=== PATIENT | male | born 1990 | race Caucasian/White ===

== ENCOUNTER 2018-02-15 01:14 | Inpatient (IN) | payer OTHER ==
[~2018-02-15] VITALS: Ht 185.4 cm; Wt 85.9 kg
--- NOTE | 2018-02-15 01:19 | ED GI/GU/ABDOMINAL COMPLAINT ---
See Addendum History of Present Illness General Chief Complaint: Abdominal Pain/Flank Pain Stated Complaint: UPPER ABD PAIN X3 DAYS Source: patient Exam Limitations: no limitations Vital Signs & Intake/Output Vital Signs & Intake/Output Vital Signs Date Time Temp Pulse Resp B/P B/P Pulse O2 O2 Flow FiO2 Mean Ox Delivery Rate 02/15 0128 99.3 72 18 136/69 97 Room Air Allergies Coded Allergies: Penicillins (ANAPHYLAXIS 02/15/18) Triage Nurses Notes Reviewed? yes Onset: Gradual Duration: day(s): Timing: recent history Quality/Severity: cramping, sharpness Location: epigastric Radiation: no radiation Activities at Onset: none Modifying Factors: Improves With: rest. Associated Symptoms: headache, nausea/vomiting HPI: 28 yo gentleman presents with 3-4 days of mid epigastric abdominal discomfort associated with diffuse headache. He notes nausea, burning, crampy mid epigastric discomfort, without fever, chills, neck stiffness, vision changes. "I feel like I'm in a fog.... and I usually don't have headaches." He is otherwise well. Past History Travel History Traveled to [place] past 21 day No Medical History Any Pertinent Medical History? see below for history Surgical History Surgical History: none Family History Hx Contributory? No Review of Systems Review of Systems Constitutional: Reports: no symptoms. EENTM: Reports: no symptoms. Respiratory: Reports: no symptoms. Cardiovascular: Reports: no symptoms. GI: Reports: no symptoms. Genitourinary: Reports: no symptoms. Musculoskeletal: Reports: no symptoms. Skin: Reports: no symptoms. Neurological/Psychological: Reports: no symptoms. Hematologic/Endocrine: Reports: no symptoms. Immunologic/Allergic: Reports: no symptoms. All Other Systems: Reviewed and Negative Physical Exam Physical Exam General Appearance: well developed/nourished, mild distress Head: atraumatic, normal appearance Eyes: Bilateral: normal appearance. Ears, Nose, Throat, Mouth: hearing grossly normal, moist mucous membrane Neck: normal inspection, supple, full range of motion Respiratory: normal breath sounds, chest non-tender, no respiratory distress, quiet respiration, lungs clear Cardiovascular: regular rate/rhythm Gastrointestinal: normal bowel sounds, soft, mild mid epigastric tenderness to palpation. no rebound. no guarding. no rlq tenderness, no ruq tenderness. Back: normal inspection, normal range of motion Extremities: normal range of motion Neurologic/Psych: no motor/sensory deficits, awake, alert, oriented x 3 Skin: intact, normal color, warm/dry Core Measures ACS in differential dx? No Sepsis Present: No Sepsis Focused Exam Completed? No Progress Differential Diagnosis: gastritis, gerd vs other.... pt also likely with tension headache vs migraine Plan of Care: Orders Procedure Date/time Status LIPASE 02/15 117 Complete HEPATIC FUNCTION PANEL 02/15 117 Complete CBC WITHOUT DIFFERENTIAL 02/15 117 Complete BASIC METABOLIC PANEL 02/15 117 Complete AMYLASE 02/15 117 Complete Current Medications Sig/Maggie Start time Last Medication Dose Stop Time Status Admin Metronidazole 500 MG ONCE ONE 02/15 430 AC 02/15 (Flagyl) 02/15 529 042 N/A 1 UNIT (No Carrier) Morphine Sulfate 4 MG ONCE ONE 02/15 430 UNVr 02/15 (Morphine) 02/15 431 0422 Ciprofloxacin 400 MG ONCE ONE 02/157 AC (Cipro) 02/15 0516 Dextrose/Water 200 ML (D5W) Laboratory Tests 02/15/18 0132: Anion Gap 11, Estimated GFR > 60, BUN/Creatinine Ratio 21.7, Glucose 97, Calcium 9.1, Total Bilirubin 2.2 H, Direct Bilirubin 1.5 H, AST 3483 H, ALT 5400 H, Alkaline Phosphatase 232 H, Total Protein 6.4, Albumin 3.9, Amylase 47, Lipase 218, CBC w Diff MAN DIFF ORDERED, RBC 4.85, MCV 91.0, MCH 31.0, MCHC 34.0, RDW 14.2, MPV 10.0, Segmented Neutrophils 51, Band Neutrophils 2, Lymphocytes 41, Monocytes 6, Platelet Estimate ADEQUATE, Polychromasia 1+, Ovalocytes FEW, Fld Total RBCs Counted 100 Diagnostic Imaging: Viewed by Me: Radiology Read. Discussed w/RAD: Radiology Read. Radiology Impression: PATIENT: RENE PIERRE PRESENT AGE: 28 PATIENT ACCOUNT NO: [id number] : 89 LOCATION: [facility] ORDERING PHYSICIAN: Brien Yuan MD SERVICE DATE: 02/15/18 EXAM TYPE: CAT - CT HEAD WO IV CONTRAST EXAMINATION: CT HEAD WITHOUT CONTRAST CLINICAL INFORMATION: Headache. COMPARISON: None TECHNIQUE: Contiguous axial imaging was performed from the skull base to vertex without intravenous administration of contrast. DLP: 727.04 mGy-cm FINDINGS: There is no evidence of acute intracranial hemorrhage or territorial infarction. No abnormal mass effect or midline shift is seen. Cordero to white matter differentiation is well preserved. No extra-axial fluid collections are identified. The ventricles are normal in size. There is no abnormal attenuation within the brain parenchyma. The osseous structures and soft tissues are normal. The mastoid air cells and visualized portions of the paranasal sinuses are well aerated. IMPRESSION: No acute intracranial pathology. DICTATED BY: Ángel Layne MD DATE/TIME DICTATED:02/15/18224 WEIGHTS AND MEASURES SEALER:LAURA DATE/TIME TRANSCRIBED:02/15/18224 CONFIDENTIAL, DO NOT COPY WITHOUT APPROPRIATE AUTHORIZATION. <Electronically signed in Other Vendor System> SIGNED BY: Ángel Layne MD 02/15/18236, PATIENT: RENE PIERRE PRESENT AGE: 28 PATIENT ACCOUNT NO: [id number] : 89 LOCATION: [facility] ORDERING PHYSICIAN: Brien Yuan MD SERVICE DATE: 02/15/18 EXAM TYPE: CAT - CT ABD & PELVIS W IV CONTRAST EXAMINATION: CT ABDOMEN AND PELVIS WITH CONTRAST CLINICAL INFORMATION: Elevated LFTs. Abdominal pain. COMPARISON: None TECHNIQUE: Multidetector volumetric imaging was performed of the abdomen and pelvis following IV administration of 95 mL of Optiray 320 intravenous contrast. Sagittal and coronal reformatted images were obtained on the technologist's workstation. DLP: 341.55 mGy-cm FINDINGS: LUNG BASES: The visualized lung bases are unremarkable. LIVER, GALLBLADDER, AND BILIARY TREE: Diffuse low attenuation of liver parenchyma due to fatty change. Mild hepatomegaly. Right lobe of liver measures 23 cm superior inferior. There is edema around the gallbladder. The gallbladder is moderately contracted. There are gallstones in the fundus of the gallbladder with small calcified stones layering dependently. No bile duct dilatation. The extrahepatic CBD measures 5 mm. PANCREAS: Unremarkable. SPLEEN: Unremarkable. ADRENAL GLANDS: Unremarkable. KIDNEYS AND URETERS: The kidneys are normal in size, shape, and attenuation. No hydronephrosis, hydroureter, or calculi seen. No perinephric stranding. BLADDER: Unremarkable. GASTROINTESTINAL TRACT: The small and large bowel are unremarkable. The appendix is unremarkable. ABDOMINAL WALL: No significant hernia is appreciated. LYMPH NODES: Normal. VASCULAR: Unremarkable. PELVIC VISCERA: Unremarkable. OSSEOUS STRUCTURES: Unremarkable. IMPRESSION: 1. Edema around the gallbladder consistent with an acute cholecystitis. There are calcified gallstones in the lumen of the gallbladder. Right upper quadrant ultrasound and HIDA scan may be helpful for further assessment. 2. Moderate hepatomegaly with diffuse fatty change of liver. DICTATED BY: Ángel Layne MD DATE/TIME DICTATED:02/15/18315 WEIGHTS AND MEASURES SEALER :LAURA DATE/TIME TRANSCRIBED:02/15/18315 CONFIDENTIAL, DO NOT COPY WITHOUT APPROPRIATE AUTHORIZATION. <Electronically signed in Other Vendor System> SIGNED BY: Ángel Layne MD 02/15/18 0345 Initial ED EKG: none Departure Departure Disposition: STILL A PATIENT Condition: Stable Clinical Impression Primary Impression: Cholecystitis Secondary Impressions: Abdominal pain, Headache Departure Forms: Customer Survey General Discharge Information Admission Note Spoke With: Stanley NEIL,Yong Lux Documentation of Exam: Documentation of any treatments & extenuating circumstances including Concerns Regarding Discharge (functional status, medication knowledge or non-compliance, living conditions, etc.) that warrant an admission rather than observation: pt with cholecystitis on ct scan, elevated lft's... pt merits admission, iv fluids, iv abx.
[2018-02-15 01:59] LABS: HEMATOCRIT 44.2 % (42-52); PLATELET COUNT 142 /CUMM (130-400); RBC DISTRIBUTION WIDTH 14.2 % (11.5-14.5); RED BLOOD CELL CT 4.85 /CUMM (4.70-6.10); WHITE BLOOD CELL COUNT 7.4 /CUMM (4.8-10.8)
--- NOTE | 2018-02-15 02:37 | CT SCAN REPORT ---
EXAMINATION: CT HEAD WITHOUT CONTRAST CLINICAL INFORMATION: Headache. COMPARISON: None TECHNIQUE: Contiguous axial imaging was performed from the skull base to vertex without intravenous administration of contrast. DLP: 727.04 mGy-cm FINDINGS: There is no evidence of acute intracranial hemorrhage or territorial infarction. No abnormal mass effect or midline shift is seen. Cordero to white matter differentiation is well preserved. No extra-axial fluid collections are identified. The ventricles are normal in size. There is no abnormal attenuation within the brain parenchyma. The osseous structures and soft tissues are normal. The mastoid air cells and visualized portions of the paranasal sinuses are well aerated. IMPRESSION: No acute intracranial pathology.
--- NOTE | 2018-02-15 03:45 | CT SCAN REPORT ---
EXAMINATION: CT ABDOMEN AND PELVIS WITH CONTRAST CLINICAL INFORMATION: Elevated LFTs. Abdominal pain. COMPARISON: None TECHNIQUE: Multidetector volumetric imaging was performed of the abdomen and pelvis following IV administration of 95 mL of Optiray 320 intravenous contrast. Sagittal and coronal reformatted images were obtained on the technologist's workstation. DLP: 341.55 mGy-cm FINDINGS: LUNG BASES: The visualized lung bases are unremarkable. LIVER, GALLBLADDER, AND BILIARY TREE: Diffuse low attenuation of liver parenchyma due to fatty change. Mild hepatomegaly. Right lobe of liver measures 23 cm superior inferior. There is edema around the gallbladder. The gallbladder is moderately contracted. There are gallstones in the fundus of the gallbladder with small calcified stones layering dependently. No bile duct dilatation. The extrahepatic CBD measures 5 mm. PANCREAS: Unremarkable. SPLEEN: Unremarkable. ADRENAL GLANDS: Unremarkable. KIDNEYS AND URETERS: The kidneys are normal in size, shape, and attenuation. No hydronephrosis, hydroureter, or calculi seen. No perinephric stranding. BLADDER: Unremarkable. GASTROINTESTINAL TRACT: The small and large bowel are unremarkable. The appendix is unremarkable. ABDOMINAL WALL: No significant hernia is appreciated. LYMPH NODES: Normal. VASCULAR: Unremarkable. PELVIC VISCERA: Unremarkable. OSSEOUS STRUCTURES: Unremarkable. IMPRESSION: 1. Edema around the gallbladder consistent with an acute cholecystitis. There are calcified gallstones in the lumen of the gallbladder. Right upper quadrant ultrasound and HIDA scan may be helpful for further assessment. 2. Moderate hepatomegaly with diffuse fatty change of liver.
--- NOTE | 2018-02-15 05:43 | History & Physical ---
JeannaKathy 02/15/18 0433: General Information and HPI MD Statement: I have seen and personally examined RENE PIERRE and documented this H&P. The patient is a 28 year old M who presented with a patient stated chief complaint of []. Source of Information: patient Exam Limitations: no limitations History of Present Illness: pt states that he has had 4 days of RUQ abdominal pain discribed as burning associated with nausea, fever up to 102 per pt and loss of appetite. Denies vomiting or diarrhea. Denies dysurea. Denies Cp/SOB. Did have a headache yesterday that was mostly at pain at the base of his skull assostiated with sensativity to light and sound. RODRIGUEZ has since resolved Allergies/Medications Allergies: Coded Allergies: Penicillins (ANAPHYLAXIS 02/15/18) Past History Travel History Traveled to [place] past 21 day No Medical History Musculoskeletal: bilat carpal tunnel releases, bilateral trigger finger release Surgical History Surgical History: non-contributory Review of Systems Review of Systems Constitutional: Reports: fever. Denies: chills. Cardiovascular: Denies: chest pain. Respiratory: Reports: short of breath (mild sob associated w ruq pain). Denies: cough. GI: Reports: see HPI, abdominal pain. Denies: diarrhea, bloody stool, vomiting. Genitourinary: Denies: dysuria. Exam & Diagnostic Data Last 24 Hrs of Vital Signs/I&O Vital Signs Date Time Temp Pulse Resp B/P B/P Pulse O2 O2 Flow FiO2 Mean Ox Delivery Rate 02/15 0128 99.3 72 18 136/69 97 Room Air Intake & Output 02/15 0800 02/15 0000 02/14 1600 Intake Total 0 Output Total Balance 0 Intake, Oral 0 Patient 190 lb Weight Weight Estimated Measurement Method Physical Exam General Appearance Alert, Oriented X3, No Acute Distress Skin No Rashes Skin Temp/Moisture Exam: Warm/Dry HEENT Atraumatic, PERRLA, EOMI, Mucous Membr. moist/pink Neck Supple Cardiovascular Regular Rate, Normal S1, Normal S2 Lungs Clear to Auscultation Abdomen Soft, no rebound tenderness, tender in RUQ and ep[igastric area. did not appreciate Jackson sign Extremities No Edema, No Tenderness/Swelling Last 24 Hrs of Labs/Kehinde: Laboratory Tests 02/15/18 0132: Anion Gap 11, Estimated GFR > 60, BUN/Creatinine Ratio 21.7, Glucose 97, Calcium 9.1, Total Bilirubin 2.2 H, Direct Bilirubin 1.5 H, AST 3483 H, ALT 5400 H, Alkaline Phosphatase 232 H, Total Protein 6.4, Albumin 3.9, Amylase 47, Lipase 218, CBC w Diff MAN DIFF ORDERED, RBC 4.85, MCV 91.0, MCH 31.0, MCHC 34.0, RDW 14.2, MPV 10.0, Segmented Neutrophils 51, Band Neutrophils 2, Lymphocytes 41, Monocytes 6, Platelet Estimate ADEQUATE, Polychromasia 1+, Ovalocytes FEW, Fld Total RBCs Counted 100 Diagnostic Data Other Results EXAM TYPE: CAT - CT ABD & PELVIS W IV CONTRAST EXAMINATION: CT ABDOMEN AND PELVIS WITH CONTRAST CLINICAL INFORMATION: Elevated LFTs. Abdominal pain. COMPARISON: None TECHNIQUE: Multidetector volumetric imaging was performed of the abdomen and pelvis following IV administration of 95 mL of Optiray 320 intravenous contrast. Sagittal and coronal reformatted images were obtained on the technologist's workstation. DLP: 341.55 mGy-cm FINDINGS: LUNG BASES: The visualized lung bases are unremarkable. LIVER, GALLBLADDER, AND BILIARY TREE: Diffuse low attenuation of liver parenchyma due to fatty change. Mild hepatomegaly. Right lobe of liver measures 23 cm superior inferior. There is edema around the gallbladder. The gallbladder is moderately contracted. There are gallstones in the fundus of the gallbladder with small calcified stones layering dependently. No bile duct dilatation. The extrahepatic CBD measures 5 mm. PANCREAS: Unremarkable. SPLEEN: Unremarkable. ADRENAL GLANDS: Unremarkable. KIDNEYS AND URETERS: The kidneys are normal in size, shape, and attenuation. No hydronephrosis, hydroureter, or calculi seen. No perinephric stranding. BLADDER: Unremarkable. GASTROINTESTINAL TRACT: The small and large bowel are unremarkable. The appendix is unremarkable. ABDOMINAL WALL: No significant hernia is appreciated. LYMPH NODES: Normal. VASCULAR: Unremarkable. PELVIC VISCERA: Unremarkable. OSSEOUS STRUCTURES: Unremarkable. IMPRESSION: 1. Edema around the gallbladder consistent with an acute cholecystitis. There are calcified gallstones in the lumen of the gallbladder. Right upper quadrant ultrasound and HIDA scan may be helpful for further assessment. 2. Moderate hepatomegaly with diffuse fatty change of liver. DICTATED BY: Ángel Layne MD DATE/TIME DICTATED:02/15/18315 SENIOR TELECOMMUNICATIONS CONSULTANT:LAURA DATE/TIME TRANSCRIBED:02/15/18 / 0316 Assessment/Plan Assessment: 28yo M with question of acute cholecystitis by CT which shows mild hepatomegally , edema around the GB and stones within fundus of the gallbladder with no ductal dilation, CBD measures 5mm . Pt has a normal WBC at 7.4 and is afebrile but does have significantly elevated aminotransferases ([id number], [id number]). With his history of IV drug use, would consider a medical workup and GI consult for possible hepatitis. No need for surgical intervention at this time as he does not appear to have acute cholecystitis. This was discussed with Dr. Angel and he agrees with the above plan. This was meant to be done as a surgery consult and not an H&P As Ranked By This Provider Problem List: 1. Abdominal pain Core Measures/Misc (06/14) Acute Coronary Syndrome ACS Diagnosis: No Congestive Heart Failure Congestive Heart Failure Diagnosis No Cerebrovascular Accident CVA/TIA Diagnosis: No VTE (View Protocol) VTE Risk Factors Acute Medical Illness No Mechanical VTE Prophylaxis d/t Other No VTE Pharm Prophylaxis d/t Other Sepsis (View protocol) Sepsis Present: No Yong Angel MD 02/15/18 0751: Attending MD Review Statement Attending Statement Attending MD Statement: examined this patient, reviewed images Attending Assessment/Plan: PATIENT WITH EPIGASTRIC ABDOMINAL PAIN AND GALLSTONES. LFT SHOW SEVERE INFLAMMATION NOT COMMONLY SEEN WITH CHOLEDOCHOLITHIASIS. SUSPECT ELEVATION IS RELATED TO HEPATITIS, NOT CHOLEDOCHOLITHIASIS. RECOMMEND GI CONSULT FOR FURTHER W/U. MANAGEMENT OF GALLBLADDER TO BE DETERMINED.
--- NOTE | 2018-02-15 06:50 | Cons- Gastroenterology ---
General Information and HPI Consulting Request Date of Consult: 02/15/18 Requested By: Robert Loyola MD Reason for Consult: Increased LFTs, abdominal pain, abnormal ct scan suggestive of cholecystitis. Source of Information: patient Exam Limitations: no limitations History of Present Illness: Mr. Driver is a 28 year old male with no significant PMH who presented to last night with complaints of mid-epigastric abdominal pain for the past 3 days. He notes a mid-epigastric 'tearing sensation' that is constant and exacerbated with eating. He notes the pain radiates to his right side/flank, but he hasn't been able to note if it is radiating to his back or if that is just his normal baseline back pain that he has been taking oxycodone, somma and ibuprofen for. He denies any tylenol use and he notes that the oxycodone he takes doesn't have acetominophin in it. He denies etoh use. He has had some nausea, but no significant vomiting and he also denies any significant burning discomfort, heartburn or dysphagia. He has been having normal bowel movements and he denies any kirill colored stool or rectal bleeding. He has noticed his urine to be dark over the past 24 hours. In the ER he had a low grade temp and he was noted to have a marked transminitis in the 4-5000 range with only a mildly elevated bilirubin to around 2. He had a ct scan which showed hepatomegaly and an edematous gallbladder with calcified stones, but no biliary ductal dilatation. Surgery was called and initally took the patient onto their service with a possible diagnosis of cholecystitis, but after reviewing the ct scan they recommended he go to the medical service with a GI consult to look for altnerative causes of incrased LFTs. So far a tylenol level has been normal and he his hep bsag negative. Allergies/Medications Allergies: Coded Allergies: Penicillins (ANAPHYLAXIS 02/15/18) Current Medications: Current Medications Sig/Maggie Start time Last Medication Dose Route Stop Time Status Admin Acetaminophen 0 .STK-MED ONE 02/15 225 DC IV Acetaminophen 1,000 MG ONCE ONE 02/15 0215 DC 02/15 N/A 1 UNIT IV 02/15 229 0241 Ciprofloxacin 400 MG ONCE ONE 02/157 DC 02/15 Dextrose/Water 200 ML IV 02/16 516 0502 Famotidine 0 .STK-MED ONE 02/15 225 DC IV Famotidine 20 MG ONCE ONE 02/15 215 DC 02/15 IV 02/15 021 024 Ketorolac 0 .STK-MED ONE 02/15 225 DC Tromethamine .ROUTE Ketorolac 30 MG ONCE ONE 02/15 215 DC 02/15 Tromethamine IV 02/15 021 0241 Metronidazole 500 MG ONCE ONE 02/15 430 DC 02/15 N/A 1 UNIT IV 02/15 529 042 Morphine Sulfate 4 MG ONCE ONE 02/15 430 DC 02/15 IV 02/15 043 0422 Morphine Sulfate 0 .STK-MED ONE 02/16 428 DC .ROUTE Ondansetron HCl 0 .STK-MED ONE 02/15 225 DC .ROUTE Ondansetron HCl 4 MG ONCE ONE 02/15 215 DC 02/15 IV 02/15 021 0241 Sodium Chloride 1,000 ML BOLUS ONE 02/15 215 DC 02/15 IV 02/15 0314 0241 Past History Travel History Traveled to [place] past 21 day No Medical History Musculoskeletal: bilat carpal tunnel releases bilateral trigger finger release Surgical History Surgical History: non-contributory Review of Systems Review of Systems Constitutional: Reports: chills, malaise. Denies: fever, weakness, unexplained weight loss. EENTM: Denies: no symptoms. Cardiovascular: Denies: no symptoms. Respiratory: Denies: no symptoms. GI: Reports: see HPI. Genitourinary: Reports: see HPI. Musculoskeletal: Reports: back pain. Denies: joint pain, joint swelling. Skin: Denies: no symptoms. Neurological/Psychological: Denies: no symptoms. Hematologic/Endocrine: Denies: no symptoms. Immunologic/Allergic: Denies: no symptoms. All Other Systems: Reviewed and Negative Exam & Diagnostic Data Vital Signs and I&O Vital Signs Date Time Temp Pulse Resp B/P B/P Pulse O2 O2 Flow FiO2 Mean Ox Delivery Rate 02/15 0557 98.6 63 18 116/69 97 Room Air 02/15 0128 99.3 72 18 136/69 97 Room Air Intake & Output 02/15 1600 02/15 0400 02/14 1600 02/14 0400 02/13 1600 02/13 0400 Intake Total 0 Output Total Balance 0 Intake, Oral 0 Patient 190 lb Weight Weight Estimated Measurement Method Physical Exam General Appearance: well developed/nourished, no apparent distress, alert, awake , comfortable Head: atraumatic, normal appearance Eyes: Bilateral: normal appearance, other. Ears, Nose, Throat: normal pharynx, normal ENT inspection Neck: normal inspection, supple, full range of motion Respiratory: normal breath sounds, chest non-tender, no respiratory distress Cardiovascular: regular rate/rhythm Gastrointestinal: normal bowel sounds, soft, distention, murphys sign equivocal; no peritoneal signs Rectal: deferred Back: normal inspection, vertebral tenderness Extremities: normal inspection, no edema Neurologic/Psych: no motor/sensory deficits, awake, alert, oriented x 3 Results Pertinent Lab Results: Laboratory Tests 02/15 02/15 0638 0600 Coagulation PT Pending INR Pending APTT Pending Toxicology Urine Opiates Screen (>2000 NG/ML) 2060.00 H Methadone Screen (>300 NG/ML) < 40 Barbiturate Screen (>200 NG/ML) < 60 Ur Phencyclidine Scrn (>25 NG/ML) < 6.00 Amphetamines Screen (>1000 NG/ML) < 100 U Benzodiazepines Scrn (>200 NG/ML) < 85 Urine Cocaine Screen (>300 NG/ML) 302 H Urine Cannabis Screen (>50 NG/ML) < 5.00 Urines Urinalysis MOD H Urine Color (YEL,AMB,STR) ICTRC H Urine Clarity (CLEAR) CLEAR Urine pH (5.0 - 8.0) 6.0 Ur Specific [place] (1.001 - 1.035) 1.020 Urine Protein (NEG,<30 MG/DL) 30 H Urine Ketones (NEG) NEG Urine Nitrite (NEG) NEG Urine Bilirubin (NEG) POS@ICTO H Urine Urobilinogen (0.1 - 1.0 EU/dl) 1.0 Ur Leukocyte Esterase (NEG) NEG Ur Microscopic SEDIMENT EXAMINED Urine RBC (0 - 5 /HPF) 1-3 Ur Epithelial Cells (NONE,FEW) RARE Urine Crystals RARE UR AC Urine Bacteria (NEG/NONE) RARE H Granular Casts (NONE /LPF) 1-3 H Urine Mucus (FEW,NONE) FEW Urine Hemoglobin (NEG) TRACE-LYSED H Urine Glucose (N MG/DL) NEG 02/15 0132 Chemistry Sodium (137 - 145 mmol/L) 141 Potassium (3.5 - 5.1 mmol/L) 3.8 Chloride (98 - 107 mmol/L) 102 Carbon Dioxide (22 - 30 mmol/L) 28 Anion Gap (5 - 16) 11 BUN (9 - 20 mg/dL) 13 Creatinine (0.7 - 1.2 mg/dL) 0.6 L Estimated GFR (>60 ml/min) > 60 BUN/Creatinine Ratio (7 - 25 %) 21.7 Glucose (65 - 99 mg/dL) 97 Calcium (8.4 - 10.2 mg/dL) 9.1 Total Bilirubin (0.2 - 1.3 mg/dL) 2.2 H Direct Bilirubin (< 0.4 mg/dL) 1.5 H AST (17 - 59 U/L) 3483 H ALT (21 - 72 U/L) 5400 H Alkaline Phosphatase (< 127 U/L) 232 H Total Protein (6.3 - 8.2 g/dL) 6.4 Albumin (3.5 - 5.0 g/dL) 3.9 Amylase (30 - 110 U/L) 47 Lipase (23 - 300 U/L) 218 Hematology CBC w Diff MAN DIFF ORDERED WBC (4.8 - 10.8 /CUMM) 7.4 RBC (4.70 - 6.10 /CUMM) 4.85 Hgb (14.0 - 18.0 G/DL) 15.0 Hct (42 - 52 %) 44.2 MCV (80.0 - 94.0 FL) 91.0 MCH (27.0 - 31.0 PG) 31.0 MCHC (33.0 - 37.0 G/DL) 34.0 RDW (11.5 - 14.5 %) 14.2 Plt Count (130 - 400 /CUMM) 142 MPV (7.4 - 10.4 FL) 10.0 Segmented Neutrophils (42.2 - 75.2 %) 51 Band Neutrophils (0.0 - 5.0 %) 2 Lymphocytes (20.5 - 51.1 %) 41 Monocytes (1.7 - 9.3 %) 6 Platelet Estimate (ADEQUATE) ADEQUATE Polychromasia 1+ Ovalocytes FEW Other Body Source Fld Total RBCs Counted (%) 100 Serology Hepatitis A IgM Ab (NONREACTIVE) Pending Hep Bs Antigen (NONREACTIVE) NONREACTIVE Hep B Core IgM Ab Conf (NONREACTIVE) Pending Hepatitis C Antibody (NONREACTIVE) Pending Toxicology Acetaminophen (10.0 - 30.0 ug/mL) < 10.0 L Imaging/Other Studies: SERVICE DATE: 02/15/18 EXAM TYPE: CAT - CT ABD & PELVIS W IV CONTRAST EXAMINATION: CT ABDOMEN AND PELVIS WITH CONTRAST CLINICAL INFORMATION: Elevated LFTs. Abdominal pain. COMPARISON: None TECHNIQUE: Multidetector volumetric imaging was performed of the abdomen and pelvis following IV administration of 95 mL of Optiray 320 intravenous contrast. Sagittal and coronal reformatted images were obtained on the technologist's workstation. DLP: 341.55 mGy-cm FINDINGS: LUNG BASES: The visualized lung bases are unremarkable. LIVER, GALLBLADDER, AND BILIARY TREE: Diffuse low attenuation of liver parenchyma due to fatty change. Mild hepatomegaly. Right lobe of liver measures 23 cm superior inferior. There is edema around the gallbladder. The gallbladder is moderately contracted. There are gallstones in the fundus of the gallbladder with small calcified stones layering dependently. No bile duct dilatation. The extrahepatic CBD measures 5 mm. PANCREAS: Unremarkable. SPLEEN: Unremarkable. ADRENAL GLANDS: Unremarkable. KIDNEYS AND URETERS: The kidneys are normal in size, shape, and attenuation. No hydronephrosis, hydroureter, or calculi seen. No perinephric stranding. BLADDER: Unremarkable. GASTROINTESTINAL TRACT: The small and large bowel are unremarkable. The appendix is unremarkable. ABDOMINAL WALL: No significant hernia is appreciated. LYMPH NODES: Normal. VASCULAR: Unremarkable. PELVIC VISCERA: Unremarkable. OSSEOUS STRUCTURES: Unremarkable. IMPRESSION: 1. Edema around the gallbladder consistent with an acute cholecystitis. There are calcified gallstones in the lumen of the gallbladder. Right upper quadrant ultrasound and HIDA scan may be helpful for further assessment. 2. Moderate hepatomegaly with diffuse fatty change of liver. Assessment/Plan Assessment/Recommendations: Assessment: Mr. Driver is a 28 year old male with chronic back pain who presented yesterday with 3 days of mid-epigastric abdominal pain of uncertain etiology, but I suspect it is mostly secondary to acute liver inflammation/hepatitis with hepatomegaly apprecited on his ct scan. While the ct scan was read as being consistent with cholecystitis he doesn't give a good history of biliary colic and I believe the edema around his gallbladder is just reactive to inflammation from his liver. He has a marked transaminitis in the thousands which would be unusual to come from just cholecystitis. While he denies IVDU he also denies cocaine use for which his tox screen was positive so his viral hepatology panel needs to be followed by as viral hepatitis could easliy cause the current clinical picture. Ischemic hepatitis from cocaine is also possible. Other viruses such as CMV or EBV may also be checked if the viral hepatitis panel comes back negative. Other causes of increased LFTs may also be sought by a serological work up, but I'm not sure if this is completely necessary if his LFTs improve and checking a serological work up acutely is unlikely to change acute management. Recommendations: 1. Follow up viral hepatitis panel and INR 2. If viral hepatitis panel is negative would then check a monospot, cmv and ebv serologies/titers 3. Avoid hepatotoxic medications. 4. Surgical follow up and to consider further imagine with a HIDA or US to more definitively rule out CCY. 5. Follow daily LFTs and INR. 6. Check iron studies and if LFTs don't start to improve would also check a serological work up (ie. JHOAN, AMA, anti-smooth muscle ab. 7. If LFTs worsen with signs of liver failure (ie increasing INR and bilirubin will then have a low threshold to transfer to [place] for a liver transplant evaluation). I will continue to follow this patient and make further recommendations based on his clinical course and results of repeat blood work. Consult Acknowledgment - Thank you for your consult request.
[2018-02-15 06:52] LABS: PT 15.2 SEC (9.4-12.5); PTT 30 SEC (25-37)
--- NOTE | 2018-02-15 08:04 | History & Physical ---
General Information and HPI MD Statement: I have seen and personally examined RENE PIERRE and documented this H&P. Source of Information: patient Exam Limitations: no limitations Allergies/Medications Allergies: Coded Allergies: Penicillins (ANAPHYLAXIS 02/15/18) Past History Travel History Traveled to [place] past 21 day No Medical History Musculoskeletal: bilat carpal tunnel releases bilateral trigger finger release Isolation History: Standard Surgical History Surgical History: non-contributory Exam & Diagnostic Data Diagnostic Data Other Results EXAM TYPE: CAT - CT ABD & PELVIS W IV CONTRAST EXAMINATION: CT ABDOMEN AND PELVIS WITH CONTRAST CLINICAL INFORMATION: Elevated LFTs. Abdominal pain. COMPARISON: None TECHNIQUE: Multidetector volumetric imaging was performed of the abdomen and pelvis following IV administration of 95 mL of Optiray 320 intravenous contrast. Sagittal and coronal reformatted images were obtained on the technologist's workstation. DLP: 341.55 mGy-cm FINDINGS: LUNG BASES: The visualized lung bases are unremarkable. LIVER, GALLBLADDER, AND BILIARY TREE: Diffuse low attenuation of liver parenchyma due to fatty change. Mild hepatomegaly. Right lobe of liver measures 23 cm superior inferior. There is edema around the gallbladder. The gallbladder is moderately contracted. There are gallstones in the fundus of the gallbladder with small calcified stones layering dependently. No bile duct dilatation. The extrahepatic CBD measures 5 mm. PANCREAS: Unremarkable. SPLEEN: Unremarkable. ADRENAL GLANDS: Unremarkable. KIDNEYS AND URETERS: The kidneys are normal in size, shape, and attenuation. No hydronephrosis, hydroureter, or calculi seen. No perinephric stranding. BLADDER: Unremarkable. GASTROINTESTINAL TRACT: The small and large bowel are unremarkable. The appendix is unremarkable. ABDOMINAL WALL: No significant hernia is appreciated. LYMPH NODES: Normal. VASCULAR: Unremarkable. PELVIC VISCERA: Unremarkable. OSSEOUS STRUCTURES: Unremarkable. IMPRESSION: 1. Edema around the gallbladder consistent with an acute cholecystitis. There are calcified gallstones in the lumen of the gallbladder. Right upper quadrant ultrasound and HIDA scan may be helpful for further assessment. 2. Moderate hepatomegaly with diffuse fatty change of liver. DICTATED BY: Ángel Layne MD DATE/TIME DICTATED:02/15/18315 TECHNICAL PLANNER:LAURA DATE/TIME TRANSCRIBED:02/15/18315 Core Measures/Misc (06/14) Cerebrovascular Accident CVA/TIA Diagnosis: No VTE (View Protocol) VTE Risk Factors Acute Medical Illness Sepsis (View protocol) Sepsis Present: No
[2018-02-15 08:15] VITALS: BP 110/80
--- NOTE | 2018-02-15 08:18 | History & Physical ---
Izaiah NEIL,Josseline 02/15/18 0818: General Information and HPI MD Statement: I have seen and personally examined RENE PIERRE and documented this H&P. The patient is a 28 year old M who presented with a patient stated chief complaint of [Abdominal pain]. 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 Pt states that starting four days ago he started experiencing pain (up to 8/10 tearing sensation) in mid-epidgstrum radiating to his RUQ. The pain is constantly present but varies in intensity through the day; it is worsened by food. At night he endorses subjecive fevers and night sweats. He denies any recent travel or exotic ingestions. Denies etoh or APAP. He did use "lot of" ibuprofen for management of his pain. Denies any herbal remedies or teas. He initially denied recent drug use, but with some pressing he admitted to using heroin and cocaine, in addition to 16 pack year smoking hx. He re-uses his own needles but vehemently denies ever sharing needles. Fam hx significant for mother with "cancer everywhere" he is unaware of the primary; she is currently hospitalized with C. diff. Father had colon cancer in his 70s. He is supposed to be on oxycodone, trazadone and Clonidine at home. He takes Oxycodone for chronic pain. The only med he is currently taking is the oxycodone. He does endorse headache, nausea, anxiety, night sweats, subjectve fevers, lb loss (in the last week about 5 lbs, but over 90 lbs since starting IVDA), abdominal pain, and dark urine. Pt states that there may be one episode of blood in his stool, cannot quantify amount and unsure if it even happened. Denies any chest pain, SOB, vomiting, dysuria, hematuria, or melena. CTPMP checked. He got Carisoprodol and Oxycodone (#90) on 02/08/2018 prescribed by [facility] in [place], [place]. Allergies/Medications Allergies: Coded Allergies: Penicillins (ANAPHYLAXIS 05/21/18) Compliance With Home Meds: POOR Past History Travel History Traveled to [place] past 21 day No Medical History Musculoskeletal: bilat carpal tunnel releases bilateral trigger finger release Isolation History: Standard Surgical History Surgical History: non-contributory Review of Systems Review of Systems Constitutional: Reports: see HPI. Exam & Diagnostic Data Last 24 Hrs of Vital Signs/I&O Vital Signs Date Time Temp Pulse Resp B/P B/P Pulse O2 O2 Flow FiO2 Mean Ox Delivery Rate 02/15 0815 98.6 55 20 110/80 97 Room Air 02/15 0726 97.8 62 18 128/70 98 Room Air 02/15 0557 98.6 63 18 116/69 97 Room Air 02/15 0128 99.3 72 18 136/69 97 Room Air Intake & Output 02/15 1600 02/15 0800 02/15 0000 Intake Total 0 Output Total Balance 0 Intake, Oral 0 Patient 86.183 kg Weight Weight Estimated Measurement Method Physical Exam General Appearance Alert, Oriented X3, Cooperative, No Acute Distress Skin no janeway lesions or splinter hemorrhages noted. HEENT Atraumatic, PERRLA, EOMI Neck Supple Cardiovascular Regular Rate, Normal S1, Normal S2, No Murmurs Lungs Normal Air Movement Abdomen Soft, + Nelson sign. BX X4 Present, Some tenderness on palpation of epigastrum. Neurological Normal Speech, Strength at 5/5 X4 Ext, Sensation Intact, Cranial Nerves 3-12 NL Extremities R. AC with evidence of old phlebitis. Last 24 Hrs of Labs/Kehinde: Laboratory Tests 02/15/18 0638: PT 15.2 H, INR 1.39 H, APTT 30 02/15/18 0600: Urine Opiates Screen 2060.00 H, Methadone Screen < 40, Barbiturate Screen < 60, Ur Phencyclidine Scrn < 6.00, Amphetamines Screen < 100, U Benzodiazepines Scrn < 85, Urine Cocaine Screen 302 H, Urine Cannabis Screen < 5.00, Urinalysis MOD H, Urine Color ICTRC H, Urine Clarity CLEAR, Urine pH 6.0, Ur Specific [place] 1.020, Urine Protein 30 H, Urine Ketones NEG, Urine Nitrite NEG, Urine Bilirubin POS@ICTO H, Urine Urobilinogen 1.0, Ur Leukocyte Esterase NEG, Ur Microscopic SEDIMENT EXAMINED, Urine RBC 1-3, Ur Epithelial Cells RARE, Urine Crystals RARE UR AC, Urine Bacteria RARE H, Granular Casts 1-3 H, Urine Mucus FEW, Urine Hemoglobin TRACE-LYSED H, Urine Glucose NEG 02/15/18 0132: Anion Gap 11, Estimated GFR > 60, BUN/Creatinine Ratio 21.7, Glucose 97, Calcium 9.1, Total Bilirubin 2.2 H, Direct Bilirubin 1.5 H, AST 3483 H, ALT 5400 H, Alkaline Phosphatase 232 H, Total Protein 6.4, Albumin 3.9, Amylase 47, Lipase 218, CBC w Diff MAN DIFF ORDERED, RBC 4.85, MCV 91.0, MCH 31.0, MCHC 34.0, RDW 14.2, MPV 10.0, Segmented Neutrophils 51, Band Neutrophils 2, Lymphocytes 41, Monocytes 6, Platelet Estimate ADEQUATE, Polychromasia 1+, Ovalocytes FEW, Fld Total RBCs Counted 100, Hepatitis A IgM Ab NONREACTIVE, Hep Bs Antigen NONREACTIVE, Hep B Core IgM Ab Conf NONREACTIVE, Hepatitis C Antibody NONREACTIVE, Acetaminophen < 10.0 L Diagnostic Data Other Results EXAM TYPE: CAT - CT ABD & PELVIS W IV CONTRAST EXAMINATION: CT ABDOMEN AND PELVIS WITH CONTRAST CLINICAL INFORMATION: Elevated LFTs. Abdominal pain. COMPARISON: None TECHNIQUE: Multidetector volumetric imaging was performed of the abdomen and pelvis following IV administration of 95 mL of Optiray 320 intravenous contrast. Sagittal and coronal reformatted images were obtained on the technologist's workstation. DLP: 341.55 mGy-cm FINDINGS: LUNG BASES: The visualized lung bases are unremarkable. LIVER, GALLBLADDER, AND BILIARY TREE: Diffuse low attenuation of liver parenchyma due to fatty change. Mild hepatomegaly. Right lobe of liver measures 23 cm superior inferior. There is edema around the gallbladder. The gallbladder is moderately contracted. There are gallstones in the fundus of the gallbladder with small calcified stones layering dependently. No bile duct dilatation. The extrahepatic CBD measures 5 mm. PANCREAS: Unremarkable. SPLEEN: Unremarkable. ADRENAL GLANDS: Unremarkable. KIDNEYS AND URETERS: The kidneys are normal in size, shape, and attenuation. No hydronephrosis, hydroureter, or calculi seen. No perinephric stranding. BLADDER: Unremarkable. GASTROINTESTINAL TRACT: The small and large bowel are unremarkable. The appendix is unremarkable. ABDOMINAL WALL: No significant hernia is appreciated. LYMPH NODES: Normal. VASCULAR: Unremarkable. PELVIC VISCERA: Unremarkable. OSSEOUS STRUCTURES: Unremarkable. IMPRESSION: 1. Edema around the gallbladder consistent with an acute cholecystitis. There are calcified gallstones in the lumen of the gallbladder. Right upper quadrant ultrasound and HIDA scan may be helpful for further assessment. 2. Moderate hepatomegaly with diffuse fatty change of liver. DICTATED BY: Ángel Layne MD DATE/TIME DICTATED:02/15/18315 ENVIRONMENTAL FIELD OFFICE MANAGER:LAURA DATE/TIME TRANSCRIBED:02/15/18315 Assessment/Plan Assessment: This is a 28 yo male with PMH of IVDA and anxiety who comes in for CC of abdominal pain and found to have significant transamanitis (AST 3483, ALT 5400, ALK 232, Tbili 2.2, Dbili 1.5, nml PLT, INR 1.39). CT showd edema around gallbladder concerning for cholecystitis, but transamanitis and pt's presentation is not as convincing. Given acute elevation in LFTs and coagulopathy with no known pre-existing liver disease there is concern for acute liver failure. Other potential differential in this pt includes Drug related ( though negative Tylenol lvl, could be related to NSAID), cholecystitis +/- Mirizzi syndrome, viral, auto-immune such as PSC, or malignancy given sig family hx. In ED he got one dose of IV cipro/Flagyll and no cultures were drawn. PLAN: Acute liver failure: Pt vehemently denies ETOH and acetaminophen. MELD-Na is 17. Pt has no evidence of encephalopathy. Hep panel negative * CBC * BEP * INR * Lactate * APAP lvl * Tox screen * Check Etoh lvl * HIV * Blood cultures * Urine cultures * LRC * HIDA * Fingerstick * IVF * Will hold off abx, but if febrile will restart cipro and Flagyll as ceftriaxone could worsen LFTs/bili. * CMV and EBV * Pain mgmt with IV dilaudid, but will hold prior to HIDA * If above all non-conclusive will consider sending [facility] serology and ceruloplasmin etc. * NPO * Appreciate GI recs * Appreciate surgery recs FC Chem ppx starting tomorrow. ALPS today. NPO As Ranked By This Provider Problem List: 1. Abdominal pain 2. Cholecystitis Core Measures/Misc (06/14) Acute Coronary Syndrome ACS Diagnosis: No Congestive Heart Failure Congestive Heart Failure Diagnosis No Cerebrovascular Accident CVA/TIA Diagnosis: No VTE (View Protocol) VTE Risk Factors Acute Medical Illness No Mechanical VTE Prophylaxis d/t N/A MechProphylax Ordered No VTE Pharm Prophylaxis d/t NA PharmProphylax ordered Sepsis (View protocol) Sepsis Present: No Regulo Jo 02/15/18 1338: General Information and HPI Allergies/Medications Home Med list No Known Home Medications Attending MD Review Statement Attending Statement Attending MD Statement: examined this patient, discuss w/resident/PA/CLIENT RELATIONS SPECIALIST, agreed w/resident/PA/CLIENT RELATIONS SPECIALIST, reviewed EMR data (avail), discussed with nursing, discussed with case mgmt Attending Assessment/Plan: pt seen and examined at bedside. Pt on exam has epigastric and RUQ tenderness to palpation. Marked elevation of transaminases on LFTs suggestive of hepatitis . GI consulted and further workup ordered. Pt denies using any synthetic drugs that could potentially cause hepatotoxicity. Will get HIDA scan to complete the workup but clinical picture less suggestive of acute cholecystitis. Will trend LFTs and get daily PT/INR and if worsening will d/w GI about possible transfer to [place]. His tylenol level was ok and utox postitive for opiates and cocaine. WIll get salicylate level. GI consult appreciated and ordered further workup per their recommendations.
--- NOTE | 2018-02-15 13:42 | Admission Certification ---
Admission Certification Certification Statement - As attending physician, I certify that at the time of - admission, based on clinical presentation, severity of - symptoms, need for further diagnostic testing and - therapeutic interventions, and risk of adverse outcomes - without in-hospital treatment, in my clinical assessment, - this patient requires an acute hospital stay for a minimum - of two nights or longer. I have also considered psychsocial - factors such as support system, advanced age, financial - issues, cognitive issues, and failed out-patient treatments, - past re-admission history, safety of patient, and lack of - compliance as applicable. Specific rationale supporting this admission is: acute hepatitis and gallstones
[2018-02-15 14:23] VITALS: BP 130/70
--- NOTE | 2018-02-15 14:41 | PN- General Surgery ---
Surgical Brief Attending Note Brief Attending Note: Patient seen and examined. Please see PA note from earlier today. As detailed, patient has severe elevation in AST and ALT with mild elevation in his bilirubin , not in keeping with choledocholithiasis. My impression is that his right upper quadrant abdominal pain is related to hepatitis not acute cholecystitis. No intervention regarding his gallbladder is planned.
--- NOTE | 2018-02-15 17:58 | NUCLEAR MEDICINE REPORT ---
EXAMINATION: NM HIDA SCAN CLINICAL INFORMATION: Right upper quadrant pain and positive Nelson sign with elevated transaminase. COMPARISON: No previous biliary scan is available for comparison. The diagnostic CT scan of the abdomen and pelvis, dated 02/15/2018, the same date as this bone scan, is available for comparison. TECHNIQUE: Serial gamma scintillation camera images were obtained over the abdomen for a total observation period 4 hours following the intravenous administration of 5.4 mCi Tc-99m Choletec. FINDINGS: There is good concentration of activity in the liver by 5 minutes post injection. A small amount of biliary activity is visualized in the bowel by 95 minutes post injection, but this is faint. At this time there is very little clearance of activity from the liver. The gallbladder is not visualized at this time. Delayed images obtained at 4 hours postinjection show abnormal persistence of activity in the liver and visualization of bowel activity. IMPRESSION: Nonvisualization the gallbladder is evidence of an obstructed cystic duct and strong evidence to suggest the diagnosis of acute cholecystitis. The common bile duct is patent. Moderate to severe impairment of liver function is present as evidenced by marked retention of activity within the liver up to 4 hours post injection.
--- NOTE | 2018-02-15 18:21 | Event Note ---
See Addendum Event Note Event Note: Patient side of scan came back positive for acute cholecystitis. Dr. Angel was already following the patient. Because he is not mineral economist so they called surgical PA first to let him know that patients scan is positive for acute cholecystitis. She told me that she will text Dr. Angel she'll let him know about the results. Later on I called mineral economist surgeon. Dr. García was mineral economist, I spoke to his office. I told them that patient's scan is positive and if surgery was to evaluate the patient again for any intervention. The lockstitch front edge tape sewer told me that he will let Dr. Giordano no about the patient. I left my number and my resident's number so that he can call us back.
--- NOTE | 2018-02-15 19:40 | Event Note ---
Event Note Event Note: Aware of positive HIDA. No surgical plan. Please refer to Dr. Angel's note from this afternoon. Dr. Edwards was made aware that Stanley is involved with this case , therefore Jerry will not be seeing patient.
--- NOTE | 2018-02-15 20:21 | PN- General Surgery ---
Surgical Brief Attending Note Brief Attending Note: LENNY reviewed. The reading radiologist has completelely misinterpreted the findings. There is absolutely no biliary excretion of contrast. As such, no ability to assess patency of the cystic duct can be made. Futhermore, the lack of biliary excretion is diagnostic of severe hepatic impairment. This patient has hepatitis, etiology to be determined. No plan for cholecystectomy. General anesthesia will made hepatitis worse by alterating splanchnic perfusion.
[2018-02-15 22:30] VITALS: BP 100/70
[2018-02-16 05:46] VITALS: BP 110/74
--- NOTE | 2018-02-16 07:30 | PN- Housestaff ---
Izaiah NEIL,Josseline 02/16/18 0729: Subjective Follow-up For: SHAYY Subjective: Saw pt at bedside this AM. No acute overnight events. He had a HIDA that was read positive yesterday and this information was conveyed to the surgeon who thought it was a false positive and given sig. transamanitis he would not be a candidate for surgery at this time. Pt is hungry this AM and would like to try clear liquid diet. Review of Systems Constitutional: Denies: chills, fever, weakness. EENTM: Reports: no symptoms. Respiratory: Denies: cough, short of breath. Gastrointestinal: Reports: abdominal pain, constipation. Denies: nausea, bloody stool, vomiting. Genitourinary: Reports: no symptoms. Musculoskeletal: Reports: no symptoms. Objective Last 24 Hrs of Vital Signs/I&O Vital Signs Date Time Temp Pulse Resp B/P B/P Pulse O2 O2 Flow FiO2 Mean Ox Delivery Rate 02/16 0546 98.0 53 20 110/74 98 Room Air 02/15 2230 97.7 60 20 100/70 97 02/15 1423 97.4 65 20 130/70 96 Room Air 02/15 0815 98.6 55 20 110/80 97 Room Air Intake & Output 02/16 0800 02/16 0000 02/15 1600 Intake Total 1160 800 250 Output Total 250 600 425 Balance 910 200 -175 Intake, IV 800 800 250 Intake, Oral 360 Output, Urine 250 600 425 Patient 86.353 kg Weight Weight Bed scale Measurement Method Physical Exam General Appearance: Alert, Oriented X3, Cooperative, No Acute Distress Skin: No Significant Lesion HEENT: Atraumatic, PERRLA, EOMI Neck: Supple Cardiovascular: Regular Rate, Normal S1, Normal S2, No Murmurs Lungs: Normal Air Movement Abdomen: + hung sign. He is even more tender today in RUQ than yesterday. Pain radiates to epigastric region Neurological: Normal Speech, Strength at 5/5 X4 Ext Current Medications: Current Medications Sig/Maggie Start time Last Medication Dose Route Stop Time Status Admin Dextrose/Lactated 1,000 ML Q10H 02/15 0945 DC 02/15 Ringer's IV 02/15 1944 0936 Dextrose/Sodium 1,000 ML Q10H 02/16 0130 AC 02/16 Chloride IV 02/16 1129 0121 Dextrose/Sodium 1,000 ML Q10H 02/15 1030 DC 02/15 Chloride IV 02/15 2029 1114 Dextrose/Sodium 1,000 ML Q10H 02/15 1015 DC Chloride IV 02/15 2014 Enoxaparin Sodium 40 MG DAILY 02/16 09 AC SC Folic Acid 1 MG DAILY 02/15 909 AC PO Hydromorphone HCl 0.2 MG Q4P PRN 02/15 1000 AC 02/16 IV 0557 Multivitamins 1 TAB DAILY 02/15 915 AC PO Last 24 Hrs of Lab/Kehinde Results Last 24 Hrs of Labs/Mics: Laboratory Tests 02/15/18 1455: Total Bilirubin 3.1 H, Direct Bilirubin 2.3 H, AST 4093 H, ALT 6533 H, Alkaline Phosphatase 251 H, Total Protein 5.4 L, Albumin 3.4 L Microbiology 02/15 1120 LOWER RESP: Respiratory Culture - RES 02/15 1120 LOWER RESP: Gram Stain - RES 02/15 1040 URINE ROUT: Urine Culture - RECD 02/15 1018 BLOOD: Blood Culture - COLB 02/15 101 BLOOD: Blood Culture - COLB Assessment/Plan Assessment: This is a 28 yo male with PMH of IVDA and anxiety who comes in for CC of abdominal pain and found to have significant transamanitis in ED:AST 3483, ALT 5400, ALK 232, Tbili 2.2, Dbili 1.5, nml PLT, INR 1.39. CT showed edema around gallbladder concerning for cholecystitis, but transamanitis and lack of colicky pain suggests more heatic than gall bladder etiology. Given acute elevation in LFTs and coagulopathy with no known pre-existing liver disease there is concern for acute liver failure. Potential etiologies in this pt includes drug related ( though negative Tylenol lvl, could be related to NSAID), cholecystitis +/- Mirizzi syndrome, viral, auto-immune such as PSC, or malignancy given sig family hx. PLAN: Acute liver failure: Pt vehemently denies ETOH and acetaminophen. MELD-Na is 17. Pt has no evidence of encephalopathy. Hep panel negative. HIV negative.Tox screen positive for cocaine and opiates. HIDA was + but there is concern for false positive. Will transition to clear liquid diet today and see if pt tolerates * Blood cultures NGTD * Urine cultures NGTD * LRC NGTD * Will hold off abx, but if febrile will restart cipro and Flagyll as ceftriaxone could worsen LFTs/bili. * CMV and EBV * Pain mgmt with IV dilaudid * If above all non-conclusive will consider sending AIH serology and ceruloplasmin etc. * Appreciate GI recs * Appreciate surgery recs FC Chem ppx starting tomorrow. ALPS today. NPO Problem List: 1. Abdominal pain Pain Ratin Pain Location: none Pain Goal: Remain pain free Pain Plan: none Tomorrow's Labs & Rationales: cbc bep JoRmtammy 02/16/18 1108: Attending MD Review Statement Attending Statement Attending MD Statement: examined this patient, discuss w/resident/PA/OUT[employer]ARD [employer] EXPERIMENTAL MECHANIC, agreed w/resident/PA/[employer] EXPERIMENTAL MECHANIC, reviewed EMR data (avail), discussed with nursing, discussed with case mgmt Attending Assessment/Plan: Will add on LFTs to am labs and have ordered the further workup for evaluation of transaminitis- JHOAN, AMA and anitsmooth muscle ab. his INR is 1.60 and is higher than yesterday. If his LFTs keep going up and his INR keeps going up will d/w GI about potential transfer to [facility]. Pt denies any synthetic drug use. d/w pt the care plan and also about transfer to [facility] in case he worsens.
[2018-02-16 10:24] LABS: PT 17.5 SEC (9.4-12.5)
[2018-02-16 10:28] LABS: ABSOLUTE BASOPHIL COUNT 0 /CUMM (0.0-0.2); ABSOLUTE EOSINOPHIL COUNT 0.2 /CUMM (0.0-0.7); ABSOLUTE GRANULOCYTE CT 2.7 /CUMM (1.4-6.5); ABSOLUTE LYMPH COUNT 5.2 /CUMM (1.2-3.4); ABSOLUTE MONOCYTE COUNT 1.1 /CUMM (0.10-0.60); BASOPHIL % 0.1 % (0.0-2.0); EOSINOPHIL % 2.1 % (0-5); GRANULOCYTE % 29.6 % (42.2-75.2); HEMATOCRIT 46.5 % (42-52); MEAN CORPUSCULAR HGB 30.2 PG (27.0-31.0); MEAN CORPUSCULAR HGB CONC 32.7 G/DL (33.0-37.0); MEAN CORPUSCULAR VOLUME 92.2 FL (80.0-94.0); MEAN PLATELET VOLUME 10.1 FL (7.4-10.4); PLATELET COUNT 132 /CUMM (130-400); RBC DISTRIBUTION WIDTH 14.7 % (11.5-14.5); RED BLOOD CELL CT 5.05 /CUMM (4.70-6.10); WHITE BLOOD CELL COUNT 9.3 /CUMM (4.8-10.8)
[2018-02-16 13:41] VITALS: BP 116/60
--- NOTE | 2018-02-16 14:06 | Discharge Summary ---
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 Pt states that starting five days ago he started experiencing pain (up to 8/10 tearing sensation) in mid-epidgstrum radiating to his RUQ. The pain is constantly present but varies in intensity through the day; it is worsened by food. At night he endorses subjecive fevers and night sweats. He denies any recent travel or exotic ingestions. Denies etoh or APAP. He did use "lot of" ibuprofen for management of his pain. When asked for exact number he said he took 4-5 at a time several times a day. Denies any herbal remedies, non- prescribed medications, or teas. He initially denied recent drug use, but with some pressing he admitted to using heroin and cocaine, in addition to 16 pack year smoking hx. He re-uses his own needles but vehemently denies ever sharing needles. Fam hx significant for mother with "cancer everywhere." She today on 1989 and was apprently in ICU care with c.diff. He is unaware of the primary cancer. Father had colon cancer in his 70s. Pts meds are supposed to be oxycodone, trazadone and Clonidine at home. The only med he is currently taking is the oxycodone. He does endorse headache, nausea, anxiety, night sweats, subjectve fevers, lb loss (in the last week about 5 lbs, but over 90 lbs since starting IVDA), abdominal pain, and dark urine. Pt states that there may be one episode of blood in his stool, cannot quantify amount and unsure if it even happened. Denies any chest pain, SOB, vomiting, dysuria, hematuria, or melena. CTPMP checked. He got Carisoprodol and Oxycodone (#90) on 02/08/2018 prescribed by [facility] in [place], [place]. Admission labs pertinent for: AST 3483, ALT 5400, ALK 232, Tbili 2.2, Dbili 1.5, nml PLT, INR 1.39. NML CBC AND BMP. Given c/o cholecystitis he was given 1x Cipro and Flagyll in ED, no subsequent doses. CT showed edema around gallbladder concerning for cholecystitis, but transamanitis and lack of colicky pain suggests more hepatic than gall bladder etiology. Given acute elevation in LFTs and mild coagulopathy, but nml mental status with no known pre-existing liver disease there is concern for ALI progressing to SHAYY. MELD-Na is 17 on admission. While admitted GI was consulted and they did not suggest NAC or steroids in this pt. Surgery suggested that this was not primary cholecystitis and pt not an ideal candidiate for surgical intervention given acute hepatitis. Pt vehemently denies ETOH and acetaminophen. Tox negative for both. Pt has no evidence of encephalopathy. Hep panel negative. HIV negative.Tox screen positive for cocaine and opiates. HIDA was + but there is concern for false positive. CMV and EBV pending. AMA, JHOAN and Anti-smooth muscle pending. Ferritin 8990. On day two of admisson: His LFT continued to trend up to Tbili 4.6, Dbili 3.6, AST 3973, ALT 7278, ALKP 244, Total protein 5.7, Albumin 3.4, INR 1.60. Given worsening hepatic synthetic function, there was concern for development of SHAYY in this very young gentleman and decision to transfer to a transplant center was made. Notably, another concern given his hx of fever, night sweats and weight loss in this IVDA was endocarditis vs malignancy. He would benefit from further evaluation of these concerns as well. Allergies: Coded Allergies: Penicillins (ANAPHYLAXIS 02/15/18) Significant Procedures: EXAM TYPE: CAT - CT ABD & PELVIS W IV CONTRAST EXAMINATION: CT ABDOMEN AND PELVIS WITH CONTRAST CLINICAL INFORMATION: Elevated LFTs. Abdominal pain. COMPARISON: None TECHNIQUE: Multidetector volumetric imaging was performed of the abdomen and pelvis following IV administration of 95 mL of Optiray 320 intravenous contrast. Sagittal and coronal reformatted images were obtained on the technologist's workstation. DLP: 341.55 mGy-cm FINDINGS: LUNG BASES: The visualized lung bases are unremarkable. LIVER, GALLBLADDER, AND BILIARY TREE: Diffuse low attenuation of liver parenchyma due to fatty change. Mild hepatomegaly. Right lobe of liver measures 23 cm superior inferior. There is edema around the gallbladder. The gallbladder is moderately contracted. There are gallstones in the fundus of the gallbladder with small calcified stones layering dependently. No bile duct dilatation. The extrahepatic CBD measures 5 mm. PANCREAS: Unremarkable. SPLEEN: Unremarkable. ADRENAL GLANDS: Unremarkable. KIDNEYS AND URETERS: The kidneys are normal in size, shape, and attenuation. No hydronephrosis, hydroureter, or calculi seen. No perinephric stranding. BLADDER: Unremarkable. GASTROINTESTINAL TRACT: The small and large bowel are unremarkable. The appendix is unremarkable. ABDOMINAL WALL: No significant hernia is appreciated. LYMPH NODES: Normal. VASCULAR: Unremarkable. PELVIC VISCERA: Unremarkable. OSSEOUS STRUCTURES: Unremarkable. IMPRESSION: 1. Edema around the gallbladder consistent with an acute cholecystitis. There are calcified gallstones in the lumen of the gallbladder. Right upper quadrant ultrasound and HIDA scan may be helpful for further assessment. 2. Moderate hepatomegaly with diffuse fatty change of liver. DICTATED BY: Ángel Layne MD DATE/TIME DICTATED:02/15/18315 IT COORDINATOR:LAURA DATE/TIME TRANSCRIBED:02/15/18315 PATIENT: RENE PIERRE PRESENT AGE: 28 PATIENT ACCOUNT NO: [id number] : 89 LOCATION: 2NA ORDERING PHYSICIAN: Cristy Bliss MD SERVICE DATE: 02/15/18 EXAM TYPE: NUC - HIDA SCAN EXAMINATION: NM HIDA SCAN CLINICAL INFORMATION: Right upper quadrant pain and positive Nelson sign with elevated transaminase. COMPARISON: No previous biliary scan is available for comparison. The diagnostic CT scan of the abdomen and pelvis, dated 02/15/2018, the same date as this bone scan, is available for comparison. TECHNIQUE: Serial gamma scintillation camera images were obtained over the abdomen for a total observation period 4 hours following the intravenous administration of 5.4 mCi Tc-99m Choletec. FINDINGS: There is good concentration of activity in the liver by 5 minutes post injection. A small amount of biliary activity is visualized in the bowel by 95 minutes post injection, but this is faint. At this time there is very little clearance of activity from the liver. The gallbladder is not visualized at this time. Delayed images obtained at 4 hours postinjection show abnormal persistence of activity in the liver and visualization of bowel activity. IMPRESSION: Nonvisualization the gallbladder is evidence of an obstructed cystic duct and strong evidence to suggest the diagnosis of acute cholecystitis. The common bile duct is patent. Moderate to severe impairment of liver function is present as evidenced by marked retention of activity within the liver up to 4 hours post injection. DICTATED BY: Devin Ornelas MD DATE/TIME DICTATED:02/15/181747 IT COORDINATOR:LAURA DATE/TIME TRANSCRIBED:02/15/181747 CONFIDENTIAL, DO NOT COPY WITHOUT APPROPRIATE AUTHORIZATION. <Electronically signed in Other Vendor System> SIGNED BY: Devin Ornelas MD 167 Pertinent Lab Results: Laboratory Tests 02/16/18 0948: Anion Gap 7, Estimated GFR > 60, BUN/Creatinine Ratio 15.7, Total Bilirubin 4.6 H, Direct Bilirubin 3.6 H, AST 3973 H, ALT 7278 H, Alkaline Phosphatase 244 H, Total Protein 5.7 L, Albumin 3.4 L, PT 17.5 H, INR 1.60 H, CBC w Diff MAN DIFF ORDERED, RBC 5.05, MCV 92.2, MCH 30.2, MCHC 32.7 L, RDW 14.7 H, MPV 10.1, Gran % 29.6 L, Lymphocytes % 56.0 H, Monocytes % 12.2 H, Eosinophils % 2.1, Basophils % 0.1, Absolute Granulocytes 2.7, Segmented Neutrophils 25 L, Band Neutrophils 2, Absolute Lymphocytes 5.2 H, Lymphocytes 66 H, Monocytes 3, Absolute Monocytes 1.1 H, Eosinophils 4, Absolute Eosinophils 0.2, Absolute Basophils 0, Platelet Estimate VERIFIED BY SMEAR, Normocytic RBCs VERIFIED, Normochromic RBCs VERIFIED 02/15/18 1500: Anti-Smooth Muscle Ab Pending 02/15/18 1455: Iron 155, TIBC 286, Ferritin 8990.0 H, Total Bilirubin 3.1 H, Direct Bilirubin 2.3 H, AST 4093 H, ALT 6533 H, Alkaline Phosphatase 251 H, Total Protein 5.4 L, Albumin 3.4 L 02/15/18 0638: PT 15.2 H, INR 1.39 H, APTT 30 02/15/18 0600: Urine Opiates Screen 2060.00 H, Methadone Screen < 40, Barbiturate Screen < 60, Ur Phencyclidine Scrn < 6.00, Amphetamines Screen < 100, U Benzodiazepines Scrn < 85, Urine Cocaine Screen 302 H, Urine Cannabis Screen < 5.00, Urinalysis MOD H, Urine Color ICTRC H, Urine Clarity CLEAR, Urine pH 6.0, Ur Specific [place] 1.020, Urine Protein 30 H, Urine Ketones NEG, Urine Nitrite NEG, Urine Bilirubin POS@ICTO H, Urine Urobilinogen 1.0, Ur Leukocyte Esterase NEG, Ur Microscopic SEDIMENT EXAMINED, Urine RBC 1-3, Ur Epithelial Cells RARE, Urine Crystals RARE UR AC, Urine Bacteria RARE H, Granular Casts 1-3 H, Urine Mucus FEW, Urine Hemoglobin TRACE-LYSED H, Urine Glucose NEG 02/15/18 0132: Anion Gap 11, Estimated GFR > 60, BUN/Creatinine Ratio 21.7, Glucose 97, Calcium 9.1, Total Bilirubin 2.2 H, Direct Bilirubin 1.5 H, AST 3483 H, ALT 5400 H, Alkaline Phosphatase 232 H, Total Protein 6.4, Albumin 3.9, Amylase 47, Lipase 218, CBC w Diff MAN DIFF ORDERED, RBC 4.85, MCV 91.0, MCH 31.0, MCHC 34.0, RDW 14.2, MPV 10.0, Segmented Neutrophils 51, Band Neutrophils 2, Lymphocytes 41, Monocytes 6, Platelet Estimate ADEQUATE, Polychromasia 1+, Ovalocytes FEW, Fld Total RBCs Counted 100, Hepatitis A IgM Ab NONREACTIVE, Hep Bs Antigen NONREACTIVE, Hep B Core IgM Ab Conf NONREACTIVE, Hepatitis C Antibody NONREACTIVE, HIV 1&2 Ab Western Blot NONREACTIVE, Salicylates 1.9, Acetaminophen < 10.0 L, Serum Alcohol < 10.0 02/15/18 0117: JHOAN Titer Pending, Anti-Nuclear Antibody Pending Microbiology 02/15 1120 LOWER RESP: Respiratory Culture - RES 02/15 1120 LOWER RESP: Gram Stain - RES 02/15 1040 URINE ROUT: Urine Culture - RES 02/15 1018 BLOOD: Blood Culture - CAN Cancelled: SPECIMEN NOT RECEIVED IN LABORATORY 02/15 1018 BLOOD: Blood Culture - CAN Cancelled: SPECIMEN NOT RECEIVED IN LABORATORY Laboratory Tests 02/16 02/15 02/15 0948 1500 1455 Chemistry Sodium (137 - 145 mmol/L) 140 Potassium (3.5 - 5.1 mmol/L) 4.2 Chloride (98 - 107 mmol/L) 104 Carbon Dioxide (22 - 30 mmol/L) 28 Anion Gap (5 - 16) 7 BUN (9 - 20 mg/dL) 11 Creatinine (0.7 - 1.2 mg/dL) 0.7 Estimated GFR (>60 ml/min) > 60 BUN/Creatinine Ratio (7 - 25 %) 15.7 Iron (49 - 181 ug/dL) 155 TIBC (261 - 462 ug/dL) 286 Ferritin (17.9 - 464 ng/mL) 8990.0 H Total Bilirubin (0.2 - 1.3 mg/dL) 4.6 H 3.1 H Direct Bilirubin (< 0.4 mg/dL) 3.6 H 2.3 H AST (17 - 59 U/L) 3973 H 4093 H ALT (21 - 72 U/L) 7278 H 6533 H Alkaline Phosphatase (< 127 U/L) 244 H 251 H Total Protein (6.3 - 8.2 g/dL) 5.7 L 5.4 L Albumin (3.5 - 5.0 g/dL) 3.4 L 3.4 L Coagulation PT (9.4 - 12.5 SEC) 17.5 H INR (0.90 - 1.17) 1.60 H Hematology CBC w Diff MAN DIFF ORDERED WBC (4.8 - 10.8 /CUMM) 9.3 RBC (4.70 - 6.10 /CUMM) 5.05 Hgb (14.0 - 18.0 G/DL) 15.2 Hct (42 - 52 %) 46.5 MCV (80.0 - 94.0 FL) 92.2 MCH (27.0 - 31.0 PG) 30.2 MCHC (33.0 - 37.0 G/DL) 32.7 L RDW (11.5 - 14.5 %) 14.7 H Plt Count (130 - 400 /CUMM) 132 MPV (7.4 - 10.4 FL) 10.1 Gran % (42.2 - 75.2 %) 29.6 L Lymphocytes % (20.5 - 51.1 %) 56.0 H Monocytes % (1.7 - 9.3 %) 12.2 H Eosinophils % (0 - 5 %) 2.1 Basophils % (0.0 - 2.0 %) 0.1 Absolute Granulocytes (1.4 - 6.5 /CUMM) 2.7 Segmented Neutrophils (42.2 - 75.2 %) 25 L Band Neutrophils (0.0 - 5.0 %) 2 Absolute Lymphocytes (1.2 - 3.4 /CUMM) 5.2 H Lymphocytes (20.5 - 51.1 %) 66 H Monocytes (1.7 - 9.3 %) 3 Absolute Monocytes (0.10 - 0.60 /CUMM) 1.1 H Eosinophils (0 - 5.0 %) 4 Absolute Eosinophils (0.0 - 0.7 /CUMM) 0.2 Absolute Basophils (0.0 - 0.2 /CUMM) 0 Platelet Estimate (ADEQUATE) VERIFIED BY SMEAR Normocytic RBCs VERIFIED Normochromic RBCs VERIFIED Immunology Anti-Smooth Muscle Ab Pending 02/15 02/15 0638 0600 Coagulation PT (9.4 - 12.5 SEC) 15.2 H INR (0.90 - 1.17) 1.39 H APTT (25 - 37 SEC) 30 Toxicology Urine Opiates Screen (>2000 NG/ML) 2060.00 H Methadone Screen (>300 NG/ML) < 40 Barbiturate Screen (>200 NG/ML) < 60 Ur Phencyclidine Scrn (>25 NG/ML) < 6.00 Amphetamines Screen (>1000 NG/ML) < 100 U Benzodiazepines Scrn (>200 NG/ML) < 85 Urine Cocaine Screen (>300 NG/ML) 302 H Urine Cannabis Screen (>50 NG/ML) < 5.00 Urines Urinalysis MOD H Urine Color (YEL,AMB,STR) ICTRC H Urine Clarity (CLEAR) CLEAR Urine pH (5.0 - 8.0) 6.0 Ur Specific [place] (1.001 - 1.035) 1.020 Urine Protein (NEG,<30 MG/DL) 30 H Urine Ketones (NEG) NEG Urine Nitrite (NEG) NEG Urine Bilirubin (NEG) POS@ICTO H Urine Urobilinogen (0.1 - 1.0 EU/dl) 1.0 Ur Leukocyte Esterase (NEG) NEG Ur Microscopic SEDIMENT EXAMINED Urine RBC (0 - 5 /HPF) 1-3 Ur Epithelial Cells (NONE,FEW) RARE Urine Crystals RARE UR AC Urine Bacteria (NEG/NONE) RARE H Granular Casts (NONE /LPF) 1-3 H Urine Mucus (FEW,NONE) FEW Urine Hemoglobin (NEG) TRACE-LYSED H Urine Glucose (N MG/DL) NEG 02/15 02/15 0132 0117 Chemistry Sodium (137 - 145 mmol/L) 141 Potassium (3.5 - 5.1 mmol/L) 3.8 Chloride (98 - 107 mmol/L) 102 Carbon Dioxide (22 - 30 mmol/L) 28 Anion Gap (5 - 16) 11 BUN (9 - 20 mg/dL) 13 Creatinine (0.7 - 1.2 mg/dL) 0.6 L Estimated GFR (>60 ml/min) > 60 BUN/Creatinine Ratio (7 - 25 %) 21.7 Glucose (65 - 99 mg/dL) 97 Calcium (8.4 - 10.2 mg/dL) 9.1 Total Bilirubin (0.2 - 1.3 mg/dL) 2.2 H Direct Bilirubin (< 0.4 mg/dL) 1.5 H AST (17 - 59 U/L) 3483 H ALT (21 - 72 U/L) 5400 H Alkaline Phosphatase (< 127 U/L) 232 H Total Protein (6.3 - 8.2 g/dL) 6.4 Albumin (3.5 - 5.0 g/dL) 3.9 Amylase (30 - 110 U/L) 47 Lipase (23 - 300 U/L) 218 Hematology CBC w Diff MAN DIFF ORDERED WBC (4.8 - 10.8 /CUMM) 7.4 RBC (4.70 - 6.10 /CUMM) 4.85 Hgb (14.0 - 18.0 G/DL) 15.0 Hct (42 - 52 %) 44.2 MCV (80.0 - 94.0 FL) 91.0 MCH (27.0 - 31.0 PG) 31.0 MCHC (33.0 - 37.0 G/DL) 34.0 RDW (11.5 - 14.5 %) 14.2 Plt Count (130 - 400 /CUMM) 142 MPV (7.4 - 10.4 FL) 10.0 Segmented Neutrophils (42.2 - 75.2 %) 51 Band Neutrophils (0.0 - 5.0 %) 2 Lymphocytes (20.5 - 51.1 %) 41 Monocytes (1.7 - 9.3 %) 6 Platelet Estimate (ADEQUATE) ADEQUATE Polychromasia 1+ Ovalocytes FEW Immunology JHOAN Titer Pending Anti-Nuclear Antibody Pending Other Body Source Fld Total RBCs Counted (%) 100 Serology Hepatitis A IgM Ab (NONREACTIVE) NONREACTIVE Hep Bs Antigen (NONREACTIVE) NONREACTIVE Hep B Core IgM Ab Conf (NONREACTIVE) NONREACTIVE Hepatitis C Antibody (NONREACTIVE) NONREACTIVE HIV 1&2 Ab Western Blot (NONREACTIVE) NONREACTIVE Toxicology Salicylates (0 - 20.0 mg/dL) 1.9 Acetaminophen (10.0 - 30.0 ug/mL) < 10.0 L Serum Alcohol (<10 MG/DL) < 10.0 Disposition Summary Disposition Principal Diagnosis: acute liver failure Additional Diagnosis: IV DRUG ABUSE Discharge Disposition: other general hospital Discharge Instructions General Discharge Information Code Status: Full Code Patient's Diet: TOLERATED Patient's Activity: TOLERATED Follow-Up Instructions/Appts: SEE ABOVE Medications at Discharge Discharge Medications: Stop taking the following medications: Carisoprodol (Carisoprodol) 350 MG TABLET ORAL THREE TIMES A DAY NEEDED Qty = 30 Oxycodone HCl (Roxicodone) 30 MG TABLET ORAL DAILY as needed for PAIN Copies To: Regulo Jo MD Attending MD Review Statement Documenting Attending: Regulo Jo MD Other Findings: Pt being dced to [place] service for further management of his acute hepatitis and worsening liver failure.
--- NOTE | 2018-02-16 14:15 | Patient Discharge Instructions ---
Discharge Instructions General Discharge Information You were seen/treated for: acute liver injury Special Instructions: Please follow up with your pcp and GI doctor Diet Continue normal diet: Yes Activity Activity Self Limited: Yes Acute Coronary Syndrome Inclusion Criteria At DC or during hospital stay patient has or had the following: ACS DIAGNOSIS No Discharge Core Measures Meds if any: Prescribed or Continued at Discharge Meds if any: NOT Prescribed or Continued at Discharge Congestive Heart Failure Inclusion Criteria At DC or during hospital stay patient has or had the following: CHF DIAGNOSIS No Discharge Core Measures Meds if any: Prescribed or Continued at Discharge Meds if any: NOT Prescribed or Continued at Discharge Cerebrovascular accident Inclusion Criteria At DC or during hospital stay patient has or had the following: CVA/TIA Diagnosis No Discharge Core Measures Meds if any: Prescribed or Continued at Discharge Meds if any: NOT Prescribed or Continued at Discharge Venous thromboembolism Inclusion Criteria VTE Diagnosis No VTE Type NONE VTE Confirmed by (Test) NONE Discharge Core Measures - Per Current guidelines, there needs to be overlap - treatment for the first 5 days of Warfarin therapy. - If discharged on Warfarin prior to 5 days of - overlap therapy, the patient will need to be - assessed for post discharge needs including - *Post discharge parental anticoagulation - *Warfarin and/or parental anticoagulation education - *Follow up date to check INR post discharge At least 5 days overlap therapy as Inpatient No Meds if any: Prescribed or Continued at Discharge Note: Overlap Therapy is Warfarin and Anticoagulant Meds if any: NOT Prescribed or Continued at Discharge
[2018-02-16] MEDS ORDERED: HYDROMORPHO2 MG/1 M3 IV (14:20)
[2018-02-16] MEDS ORDERED: CARISOPRODOL350 M1 PO (14:22)
[2018-02-16] MEDS ORDERED: ROXICODONE30 M1 PO (14:23)
== END 2018-02-16 20:18 | disposition short-term general hospital (02) | DRG 279 ==
LOC: ERH 01:14 → 2NA 04:32 → ERHI 04:32 → ENRESERV 06:11 → EDBEDREQ 06:41 → ERHI 06:46 → ENTRNSPT 07:08 → EDTRNSPTSTS 07:13 → EDTRNSPT 07:13 → 2NA 07:27 → EDTRNSPT 07:32 → CMPTRNSPT 07:40 → 2NA 09:34 → ENPENDDIS 02-16 14:28 → 2NA 02-16 20:18
PROVIDERS: Pediatrics; Student in an Organized Health Care Education/Training Program
DX: K72.00 Acute and subacute hepatic failure without coma (principal); R74.0 Nonspecific elevation of levels of transaminase and lactic acid dehydrogenase [LDH]; F14.10 Cocaine abuse, uncomplicated; F11.10 Opioid abuse, uncomplicated; F41.9 Anxiety disorder, unspecified; K80.80 Other cholelithiasis without obstruction; F17.210 Nicotine dependence, cigarettes, uncomplicated; Z88.0 Allergy status to penicillin
CPT/HCPCS: 2NASP; 36415; 36592; 74177; 78226; 80307; 81001; 82436; 87040; 87070; 87086; 87389; 96374; 96375; A9537; G0480; J0131; J0744; J1650; J1885; J2405; J3490; J7042; J7060